=== PATIENT | female | born 1985 | race Caucasian/White ===

== ENCOUNTER 2022-03-10 05:41 | Inpatient (IN) ==
--- NOTE | 2022-03-03 13:50 | Anesthesiology Consultation ---
Date of Service March 03, 2022 Assessment & Plan (1) Encounter for pre-operative examination: Chart Review Chart Review: Acceptable Risk for Surgery and Patient NOT seen in Pre Admission Testing Consults Requested none History Surgery Operation Date: 03/10/22 09:20 Proposed Procedures p Primary Section, Twins - Krupa Irby MD Height/Weight Height: 5 ft 1 in Weight: 81.647 kg Allergies Allergy/AdvReac Type Severity Reaction Status Date / Time No Known Allergies Allergy Verified 03/03/22 12:44 Medications Home Medications Medication Instructions Recorded Confirmed Last Taken trazodone 100 mg tablet 100 mg PO HS PRN Sleep 02/13/21 03/03/22 02/07/21 21:30 ibuprofen 600 mg tablet 600 mg PO Q6H #30 tabs 02/14/21 03/03/22 Unknown aspirin 81 mg capsule 81 mg PO QAM 03/03/22 03/03/22 Unknown iron 130 mg PO BID 03/03/22 03/03/22 Unknown [id number] 1 mg 1 tab PO QAM 03/03/22 03/03/22 Unknown tablet Past Medical History Medical History Patient denies significant medical history Past Family History Family History Other Heart disease Denies family history of Ovarian cancer Breast cancer Colorectal cancer Past Surgical History Surgical History History of elbow surgery Hx of colposcopy with cervical biopsy [place] teeth extracted D and E 03/01: GA with LMA. Social History Smoking Status: Never smoker Do You Dip or Chew Tobacco: No Hx Alcohol Use: Yes ("when I'm not ") Alcohol type: beer, wine and hard liquor alcohol intake frequency: a few times a month Hx Substance Use: No substance use type: does not use
[2022-03-10] MEDS ORDERED: LACTATED RINGER'S 1,000 ML IV PRN (06:01)
[2022-03-10] MEDS ORDERED: OXYTOCIN 30 UNITS/500 ML BAG IV PRN (06:01)
[2022-03-10] MEDS ORDERED: LACTATED RINGER'S 1,000 ML IV SCH ×3 (06:15→09:00)
[2022-03-10] MEDS ORDERED: CITRIC ACID/SODIUM CITRATE 15 ML UDC PO SCH (06:30)
[2022-03-10] MEDS ORDERED: OXYTOCIN 10 UNITS/ML VIAL ONE ×2 (06:50→08:23)
[2022-03-10] MEDS ORDERED: MoRPHine SULFATE PF 1 MG/ML 10 ML AMP/VIAL ONE (06:51)
[2022-03-10] MEDS ORDERED: fentaNYL citrate 100 MCG/2 ML VIAL ONE (06:51)
[2022-03-10] MEDS ORDERED: ceFAZolin 2000MG 2,000 MG/15 ML SYR IV SCH (07:00)
[2022-03-10 07:10] LABS: Hematocrit (blood only) 36.1 % (34.1-44.9); Hemoglobin 12.5 g/dl (12.0-16.0); Mean Corpuscular Hemoglobin 30.6 pg (25.0-34.0); Mean Corpuscular Hgb Conc 34.6 g/dL (32.0-36.0); Mean Corpuscular Volume 88.5 fL (80.0-100.0); Mean Platelet Volume 11.9 fL (9.4-12.3); Platelet Count 132 K/uL (130-400); RDW Coefficient of Variation 12.5 % (11.5-14.5); RDW Standard Deviation 40.4 fL (36.4-46.3); Red Blood Count 4.08 M/uL (3.93-5.22); White Blood Count 10.41 K/ul (4.8-10.8)
--- NOTE | 2022-03-10 07:27 | History & Physical Bridge Note ---
Date of Service March 10, 2022 History & Physical Bridge Note I have examined the patient, reviewed the History & Physical and in the interval since the performance of the History & Physical I have noted the following changes of clinical significance: no changes noted Bed side US completed: both breech FHR 's confirmed She signed an informed consent. All questions were answered.
[2022-03-10 07:33] LABS: Basophils # (auto) 0.04 K/uL (0-0.2); Basophils % (auto) 0.4 %; Eosinophils # (auto) 0.18 K/uL (0-0.50); Eosinophils % (auto) 1.7 %; Immature Granulocytes # (auto) 0.11 K/uL (0.00-0.02); Immature Granulocytes % (auto) 1.1 %; Lymphocytes # (auto) 1.66 K/uL (1.2-3.4); Lymphocytes % (auto) 15.9 %; Monocytes % (auto) 7.7 %; Neutrophils # (auto) 7.62 K/uL (1.4-6.5); Neutrophils % (auto) 73.2 %
[2022-03-10] MEDS ORDERED: NALBUPHINE HCL INJ 10 MG/ML AMP IV PRN (08:03)
[2022-03-10] MEDS ORDERED: ceFAZolin 330 MG/ML 1 GM VIAL ONE (08:03)
[2022-03-10] MEDS ORDERED: MEPERIDINE HCL 25 MG/ML CARP/VIAL IV PRN (08:03)
[2022-03-10] MEDS ORDERED: NALOXONE HCL 0.08 MG in SYRINGE 1.8 ML IV PRN (08:03)
[2022-03-10] MEDS ORDERED: ePHEDrine sulfate 50 MG/ML AMP IV PRN (08:03)
[2022-03-10] MEDS ORDERED: diphenhydrAMINE 50 MG/ML VIAL IV PRN (08:03)
[2022-03-10] MEDS ORDERED: NALOXONE HCL 1 MG in SODIUM CHLORIDE 0.9% 1000ML 1,000 ML IV PRN (08:03)
[2022-03-10] MEDS ORDERED: ONDANSETRON INJ 2 MG/ML 2 ML VIAL IV PRN (08:03)
[2022-03-10] MEDS ORDERED: NALOXONE HCL 0.4 MG/1 ML VIAL/CARP IV PRN (08:03)
[2022-03-10] MEDS ORDERED: LACTATED RINGER'S 500 ML IV PRN (08:03)
[2022-03-10] MEDS ORDERED: MoRPHine SULFATE PF 1 MG/ML 10 ML AMP/VIAL INT SPINAL ONE (08:03)
[2022-03-10] MEDS ORDERED: PHENYLEPHRINE 100MCG/ML 5ML SYR ONE (08:11)
[2022-03-10] MEDS ORDERED: SODIUM CHLORIDE 0.9% 1000ML 1,000 ML IV SCH (08:15)
[2022-03-10] MEDS ORDERED: NO NARCOTICS OR SEDATIVES SCH (08:15)
[2022-03-10] MEDS ORDERED: DC INTRASPINAL MORPHINE SCH (08:15)
[2022-03-10] MEDS ORDERED: ONDANSETRON INJ 2 MG/ML 2 ML VIAL ONE (08:35)
[2022-03-10] MEDS ORDERED: HYDROCORTISONE ACETATE 25 MG SUPP PR PRN (08:54)
[2022-03-10] MEDS ORDERED: BENZOCAINE 20% AER SPR 82.5 GM CAN EXT PRN (08:54)
[2022-03-10] MEDS ORDERED: MAGNESIUM HYDROXIDE SUSP 30 ML UDC PO PRN (08:54)
[2022-03-10] MEDS ORDERED: DIPHTHERIA/TETANUS/PERTUSSIS 0.5 ML SYR/VIAL IM ONE (08:54)
[2022-03-10] MEDS ORDERED: SENNA 8.6 MG TAB PO PRN (08:54)
--- NOTE | 2022-03-10 08:56 | Post Operative Brief Note ---
Immediate Post Op Note v1 Date of Surgery March 10, 2022 Pre & Post Diagnosis Operation Date: 03/10/22 07:30 Pre-Op Diagnosis: Primary Breech Twins Post-Op Diagnosis: Primary Breech Twins I identified the patient and participated in the time-out.: Yes Procedure Operation Date: 03/10/22 07:30 <No data on this case meets the specified criteria> Primary LTCS Surgeon Krupa Irby MD [employer] Manager JEMIMA Yeager Estimated Blood Loss 500 Findings Consistent with Post-Op Diagnosis Drains Slater Catheter (intact and draining clear yellow urine prior to procedure. Anesthesia to monitor intraoperative) Anesthesia Type Spinal Complications none
--- NOTE | 2022-03-10 09:24 | Anesthesiology Progress Note ---
Date of Service March 10, 2022 Anesthesia Post Procedure Vital Signs Vital Signs: Temp Pulse Resp BP Pulse Ox 03/10/22 06:01 98.1 F 18 03/10/22 09:22 76 100 03/10/22 09:23 86 80/52 L 03/10/22 09:17 89 100 03/10/22 09:18 89 94 03/10/22 09:12 80 100 03/10/22 09:11 78 94/60 L 03/10/22 09:08 81 89 L 03/10/22 09:07 77 100 03/10/22 09:02 79 100 03/10/22 09:01 73 99/57 L 03/10/22 06:00 87 135/85 03/10/22 05:51 18 03/10/22 05:51 98.1 F 18 Transfer of Care Handoff Completed per policy Notes Mental Status: alert / awake / arousable and participated in evaluation Patient Amnestic to Procedure: Yes Nausea / Vomiting: adequately controlled Pain: adequately controlled Airway Patency, RR, SpO2: stable & adequate BP & HR: stable & adequate Hydration State: stable & adequate Neuraxial Anesthesia: was administered and sensory block is resolving Anesthetic Complications: no major complications apparent and Pt Satisfied with anesthetic care
--- NOTE | 2022-03-10 10:15 | Operative Report (OR) ---
DATE OF SURGERY: 03/10/2022. PREOPERATIVE DIAGNOSES: The patient is a 36-year-old G3, P0-0-2-0 at 38 weeks and 4 days of gestation with di-di twins, breech/breech presentation. POSTOPERATIVE DIAGNOSES: The patient is a 36-year-old G3, P0-0-2-0 at 38 weeks and 4 days of gestation with di-di twins, breech/breech presentation. PROCEDURE: Primary low transverse with Pfannenstiel skin incision. SURGEON: Krupa Irby MD CIRCULATION MAN: JEMIMA Cox. ESTIMATED BLOOD LOSS: 500 mL ANESTHESIA: Spinal. ANESTHESIOLOGIST: Dr. See. DRAINS: Slater catheter drained 50 mL of concentrated urine. COMPLICATIONS: None. FINDINGS: Maternal findings: Normal uterus, fallopian tubes, and ovaries. Baby A was a viable male infant delivered at 8:16 a.m. in complete breech presentation, Apgars were 8/9, weight was 2677 grams. Baby B was a viable female infant delivered at 8:19 a.m. in footling breech presentation, Apgars were 8/9, weight was 2764 grams. DESCRIPTION OF PROCEDURE: The patient was taken to the operating room where spinal anesthesia was given without difficulty. She was placed in dorsal supine position with a leftward tilt. She was prepared and draped in the usual sterile fashion. Pfannenstiel skin incision was made and carried through to the underlying layer of fascia with the Bovie. Fascia was incised in the midline and incision was extended laterally with the help of Juan scissors. Upper aspect of the fascial incision was then grasped with 2 Yadiel clamps, elevated and underlying rectus muscles were dissected sharply with Juan scissors and then same thing was done on the lower aspect of the fascial incision. Rectus muscles were in the midline. Peritoneum was entered bluntly with fingers and the peritoneal incision was extended superiorly and inferiorly with good visualization of the bladder. Bladder blade was inserted. Vesicouterine peritoneum was grasped with 2 Yadiel clamps and entered sharply with Metzenbaum scissors and bladder flap was created digitally and bladder blade was reinserted. Lower uterine segment was incised in transverse fashion. Incision was extended laterally with the help of fingers. Membranes were ruptured. Clear fluid was obtained. Baby A's buttocks were at the site of incision. Those were delivered without difficulty and then legs and then body and arms in flexion position and the head without difficulty. Mouth and nose were suctioned. Cord was clamped x2 and cut at 1 minute delay. Baby was vigorously moving and crying at that point. Baby A was handed off to the waiting pediatric team with Dr. Sosa. Then baby B's membranes were ruptured and the feet came first. They were delivered and then legs and then buttocks and then body and arms in flexion position and head without difficulty. Mouth and nose were suctioned. Cord was clamped x2 and cut at 1 minute delay. Baby was vigorously moving and crying at that point. She was also handed off to the waiting pediatric team and then cord blood was obtained. Placenta was delivered manually as intact and complete. Uterus was exteriorized and cleared of all clots and debris. The incision was repaired with 0 Vicryl in a running locked fashion. A second imbricating layer was placed with another 0 Vicryl in a running locked fashion. Excellent hemostasis was achieved. Cul-de-sac was irrigated with warm normal saline and suctioned.. Normal ovaries and fallopian tubes were seen. Uterus was returned to the abdomen. Pelvis was irrigated with warm normal saline and suctioned. Incision was checked to be again hemostatic. Then, parietal peritoneum was reapproximated with 3-0 Vicryl in a running fashion and the rectus muscles were also brought together with the same suture in a running fashion. Excellent hemostasis was achieved. The rectus fascia was reapproximated with 0 Vicryl in a running fashion. Subcuticular fat tissue was brought together with 3-0 Vicryl in a running fashion. The skin was closed with 4-0 Monocryl in a subcuticular fashion. The patient tolerated the procedure well. Sponge, lap, needle count was correct x3. She was given 2 grams of cefazolin before surgery. No complications happened. I was present during whole procedure. She was taken to recovery room in stable condition. Job ID: [id number] [facility]
[2022-03-10] MEDS: OXYTOCIN 20 UNITS in LACTATED RINGER'S 1,000 ML IV SCH ×2 (11:27→19:44)
[2022-03-10] MEDS: KETOROLAC 30 MG/ML VIAL IV PRN (11:57)
[2022-03-10] MEDS: SIMETHICONE 80 MG CHEW PO SCH ×3 (13:25→20:41)
[2022-03-10] MEDS ORDERED: PROMETHAZINE HCL 6.25 MG in SODIUM CHLORIDE 0.9% 50 ML IV STA (13:58)
[2022-03-10] MEDS: DOCUSATE SODIUM 100 MG CAP PO SCH (20:41)
[2022-03-11] MEDS: KETOROLAC 30 MG/ML VIAL IV PRN (01:33)
[2022-03-11] MEDS ORDERED: ONDANSETRON INJ 2 MG/ML 2 ML VIAL IV PRN (02:05)
[2022-03-11] MEDS ORDERED: diphenhydrAMINE Capsule 25 MG CAP PO PRN (02:05)
[2022-03-11] MEDS ORDERED: PROMETHAZINE HCL 25 MG in SODIUM CHLORIDE 0.9% 50 ML IV PRN (02:05)
[2022-03-11] MEDS ORDERED: MEPERIDINE HCL 50 MG/ML CARP IV PRN (02:05)
[2022-03-11] MEDS ORDERED: diphenhydrAMINE 50 MG/ML VIAL IV PRN (02:05)
[2022-03-11 05:56] LABS: Basophils # (auto) 0.05 K/uL (0-0.2); Basophils % (auto) 0.3 %; Eosinophils # (auto) 0.14 K/uL (0-0.50); Eosinophils % (auto) 0.9 %; Hematocrit (blood only) 32.2 % (34.1-44.9); Hemoglobin 11.1 g/dl (12.0-16.0); Immature Granulocytes # (auto) 0.15 K/uL (0.00-0.02); Lymphocytes # (auto) 1.25 K/uL (1.2-3.4); Lymphocytes % (auto) 8.2 %; Mean Corpuscular Hemoglobin 30.2 pg (25.0-34.0); Mean Corpuscular Hgb Conc 34.5 g/dL (32.0-36.0); Mean Corpuscular Volume 87.5 fL (80.0-100.0); Mean Platelet Volume 11.4 fL (9.4-12.3); Monocytes # (auto) 1.32 K/uL (0.24-0.82); Monocytes % (auto) 8.6 %; Neutrophils # (auto) 12.38 K/uL (1.4-6.5); Platelet Count 118 K/uL (130-400); RDW Coefficient of Variation 12.4 % (11.5-14.5); RDW Standard Deviation 39.8 fL (36.4-46.3); Red Blood Count 3.68 M/uL (3.93-5.22); White Blood Count 15.29 K/ul (4.8-10.8)
[2022-03-11] MEDS: IBUPROFEN 600 MG TAB PO PRN ×3 (07:54→17:43)
[2022-03-11] MEDS: PRENATAL VITAMIN 1 TAB PO SCH (07:54)
[2022-03-11] MEDS: FERROUS SULFATE 325 MG TAB PO SCH (07:54)
[2022-03-11] MEDS: DOCUSATE SODIUM 100 MG CAP PO SCH ×2 (07:54→21:01)
[2022-03-11] MEDS: oxyCODONE/ACETAMINOPHEN 5mg/325mg TAB PO PRN ×3 (07:55→17:43)
[2022-03-11] MEDS: SIMETHICONE 80 MG CHEW PO SCH ×4 (08:07→21:01)
--- NOTE | 2022-03-11 08:54 | Obstetrical Progress Note ---
Date of Service March 11, 2022 Assessment & Plan Admission and Anticipated Discharge Date Admission Date: March 10, 2022 Subjective Patient is seen and examined. She feels well, no complaints. Pain is under control with oral meds. Ambulating without dizziness Voiding without difficulty Tolerating regular diet with out N&V Flatus + BM neg Bleeding is minimal No fever/ chills/ CP/ SOB/ N&V/ Leg pain Breast and bottle feeding twins without problems Vital Signs Temp Pulse Pulse Resp BP Pulse Ox O2 Del Method 03/11/22 07:20 36.9 C 84 18 127/85 100 Room Air 03/11/22 07:24 37.1 C 86 18 123/85 99 Room Air 03/11/22 03:25 36.9 C 76 18 115/69 98 Room Air 03/11/22 01:25 18 98 03/11/22 00:20 18 97 03/10/22 23:25 36.9 C 83 18 122/76 96 Room Air 03/10/22 23:05 18 96 03/10/22 22:00 18 97 03/10/22 21:00 18 98 Lab Results 03/10/22 03/10/22 03/10/22 Range/Units 05:30 06:01 06:52 WBC 10.41 (4.8-10.8) K/ul RBC 4.08 (3.93-5.22) M/uL Hgb 12.5 (12.0-16.0) g/dl Hct 36.1 (34.1-44.9) % MCV 88.5 (80.0-100.0) fL MCH 30.6 (25.0-34.0) pg MCHC 34.6 (32.0-36.0) g/dL RDW Std Deviation 40.4 (36.4-46.3) fL RDW Coeff of Alpa 12.5 (11.5-14.5) % Plt Count 132 (130-400) K/uL MPV 11.9 (9.4-12.3) fL Immature Gran % (Auto) 1.1 % Neut % (Auto) 73.2 % Lymph % (Auto) 15.9 % [place]ock[place] % (Auto) 7.7 % Eos % (Auto) 1.7 % Baso % (Auto) 0.4 % Neut # (Auto) 7.62 H (1.4-6.5) K/uL Lymph # (Auto) 1.66 (1.2-3.4) K/uL [place] # (Auto) 0.80 (0.24-0.82) K/uL Eos # (Auto) 0.18 (0-0.50) K/uL Baso # (Auto) 0.04 (0-0.2) K/uL Immature Gran # (Auto) 0.11 H (0.00-0.02) K/uL SARS-CoV-2, RNA, NAAT NEGATIVE (NEGATIVE) Blood Type O Positive Antibody Screen NEGATIVE 03/11/22 Range/Units 05:46 WBC 15.29 H (4.8-10.8) K/ul RBC 3.68 L (3.93-5.22) M/uL Hgb 11.1 L (12.0-16.0) g/dl Hct 32.2 L (34.1-44.9) % MCV 87.5 (80.0-100.0) fL MCH 30.2 (25.0-34.0) pg MCHC 34.5 (32.0-36.0) g/dL RDW Std Deviation 39.8 (36.4-46.3) fL RDW Coeff of Alpa 12.4 (11.5-14.5) % Plt Count 118 L (130-400) K/uL MPV 11.4 (9.4-12.3) fL Immature Gran % (Auto) 1.0 % Neut % (Auto) 81.0 % Lymph % (Auto) 8.2 % [place] % (Auto) 8.6 % Eos % (Auto) 0.9 % Baso % (Auto) 0.3 % Neut # (Auto) 12.38 H (1.4-6.5) K/uL Lymph # (Auto) 1.25 (1.2-3.4) K/uL [place] # (Auto) 1.32 H (0.24-0.82) K/uL Eos # (Auto) 0.14 (0-0.50) K/uL Baso # (Auto) 0.05 (0-0.2) K/uL Immature Gran # (Auto) 0.15 H (0.00-0.02) K/uL SARS-CoV-2, RNA, NAAT (NEGATIVE) Blood Type Antibody Screen PE: General: Alert, orientedx3, NAD CVS: S1S2 RRR Lungs; CTAB Abd: soft, NT, ND, BS+, fundus firm, below Umbilicus Incision/ Dressing: Clean, dry, intact Perineum intact, Lochia rubra minimal Ext; NT, no edema AP: 36 yo s/p C Section, pod# 1 VSS Afebrile doing well Continue routine postop care Encourage ambulation, PO intake All questions were answered Results & Data ([facility]) Vital Signs (Past 12 Hours) Vital Signs Temp Pulse Pulse Resp BP Pulse Ox O2 Del Method 03/11/22 07:20 36.9 C 84 18 127/85 100 Room Air 03/11/22 07:24 37.1 C 86 18 123/85 99 Room Air 03/11/22 03:25 36.9 C 76 18 115/69 98 Room Air 03/11/22 01:25 18 98 03/11/22 00:20 18 97 03/10/22 23:25 36.9 C 83 18 122/76 96 Room Air 03/10/22 23:05 18 96 03/10/22 22:00 18 97 03/10/22 21:00 18 98
[2022-03-11] MEDS ORDERED: bisacodyL 5 MG TABEC PO SCH (20:00)
[2022-03-12] MEDS: IBUPROFEN 600 MG TAB PO PRN ×4 (00:04→13:16)
[2022-03-12] MEDS: oxyCODONE/ACETAMINOPHEN 5mg/325mg TAB PO PRN ×4 (00:04→13:16)
[2022-03-12 06:13] LABS: Basophils # (auto) 0.05 K/uL (0-0.2); Basophils % (auto) 0.5 %; Eosinophils # (auto) 0.16 K/uL (0-0.50); Eosinophils % (auto) 1.6 %; Hematocrit (blood only) 29.9 % (34.1-44.9); Hemoglobin 10.2 g/dl (12.0-16.0); Immature Granulocytes # (auto) 0.11 K/uL (0.00-0.02); Immature Granulocytes % (auto) 1.1 %; Lymphocytes % (auto) 14.3 %; Mean Corpuscular Hgb Conc 34.1 g/dL (32.0-36.0); Mean Corpuscular Volume 87.9 fL (80.0-100.0); Mean Platelet Volume 11.3 fL (9.4-12.3); Monocytes # (auto) 1.01 K/uL (0.24-0.82); Monocytes % (auto) 10.3 %; Neutrophils # (auto) 7.08 K/uL (1.4-6.5); Neutrophils % (auto) 72.2 %; Platelet Count 155 K/uL (130-400); RDW Coefficient of Variation 12.7 % (11.5-14.5); RDW Standard Deviation 41.5 fL (36.4-46.3); White Blood Count 9.81 K/ul (4.8-10.8)
[2022-03-12] MEDS ORDERED: bisacodyL 10 MG SUPP PR PRN (08:54)
[2022-03-12] MEDS: SIMETHICONE 80 MG CHEW PO SCH ×2 (09:36→13:16)
[2022-03-12] MEDS: FERROUS SULFATE 325 MG TAB PO SCH (09:36)
[2022-03-12] MEDS: DOCUSATE SODIUM 100 MG CAP PO SCH (09:37)
[2022-03-12] MEDS: PRENATAL VITAMIN 1 TAB PO SCH (09:37)
--- NOTE | 2022-03-12 11:03 | Obstetrical Progress Note ---
Date of Service March 12, 2022 Subjective Ambulation: ambulating normally Voiding: no voiding problems Passing Gas:: Yes Diet Tolerance:: regular diet Feeding Type:: breast feeding Current Pain Level(1-10): 0 doing well. plans to go home today Physical Exam Constitutional WD/WN, vitals as above Gastrointestinal (Abdomen) Inspection/Auscultation: abdomen normal to inspection incision c/d/i. Abdomen soft and non-tender. fundus firm below U Musculoskeletal Extremities: extremities normal to inspection Skin no rashes, warm and dry Neurologic patellar DTR's 2+ bilat, sensation intact Psychiatric A+Ox3, euthymic affect Results & Data ([facility]) Vital Signs (Past 12 Hours) Vital Signs Temp Pulse Pulse Pulse Resp BP Pulse Ox 03/12/22 10:06 83 132/85 03/12/22 08:10 36.6 C 73 18 150/91 H 99 03/12/22 00:15 03/12/22 00:15 36.7 C 81 18 127/81 98 O2 Del Method 03/12/22 10:06 03/12/22 08:10 Room Air 03/12/22 00:15 Room Air 03/12/22 00:15 Room Air Laboratory Results Laboratory Results - last 72 hr 03/10/22 03/10/22 03/10/22 05:30 06:01 06:52 WBC 10.41 RBC 4.08 Hgb 12.5 Hct 36.1 MCV 88.5 MCH 30.6 MCHC 34.6 RDW Std Deviation 40.4 RDW Coeff of Alpa 12.5 Plt Count 132 MPV 11.9 Immature Gran % (Auto) 1.1 Neut % (Auto) 73.2 Lymph % (Auto) 15.9 Levy % (Auto) 7.7 Eos % (Auto) 1.7 Baso % (Auto) 0.4 Neut # (Auto) 7.62 H Lymph # (Auto) 1.66 Levy # (Auto) 0.80 Eos # (Auto) 0.18 Baso # (Auto) 0.04 Immature Gran # (Auto) 0.11 H SARS-CoV-2, RNA, NAAT NEGATIVE Blood Type O Positive Antibody Screen NEGATIVE 03/11/22 03/12/22 05:46 05:51 WBC 15.29 H 9.81 RBC 3.68 L 3.40 L Hgb 11.1 L 10.2 L Hct 32.2 L 29.9 L MCV 87.5 87.9 MCH 30.2 30.0 MCHC 34.5 34.1 RDW Std Deviation 39.8 41.5 RDW Coeff of Alpa 12.4 12.7 Plt Count 118 L 155 MPV 11.4 11.3 Immature Gran % (Auto) 1.0 1.1 Neut % (Auto) 81.0 72.2 Lymph % (Auto) 8.2 14.3 Levy % (Auto) 8.6 10.3 Eos % (Auto) 0.9 1.6 Baso % (Auto) 0.3 0.5 Neut # (Auto) 12.38 H 7.08 H Lymph # (Auto) 1.25 1.40 Levy # (Auto) 1.32 H 1.01 H Eos # (Auto) 0.14 0.16 Baso # (Auto) 0.05 0.05 Immature Gran # (Auto) 0.15 H 0.11 H SARS-CoV-2, RNA, NAAT Blood Type Antibody Screen
--- NOTE | 2022-03-18 02:46 | Discharge Summary (DS) ---
DATE OF ADMISSION: 03/10/2022. DATE OF DISCHARGE: 03/12/2022. DETAILS OF ADMISSION: The patient is a 36-year-old G3, P0-0-2-0 at 38 weeks and 4 days of gestation with di-di twins, both were breech-breech presentation. She was scheduled for primary for above indication. She presented to labor and delivery for a scheduled procedure. She had no symptom s of labor and vital signs were stable and heart rates were reassuring. She was taken to the o perating room for the above surgery. She delivered two viable infants, baby A at 7:16 a.m. in comple te breech presentation and baby B was delivered at 8:19 a.m. with footling breech presentation. Both Apgars were 8/9 and her surgery was uncomplicated. See dictated op note for details. On postop period, the patient was doing well, vital signs stable, afebrile. Urine output was adequat e. On postoperative day #1, the patient was doing well, vital signs stable, afebrile. Slater was dis continued. She ambulated, voided without difficulty, tolerated regular diet, passed gas. Vital sign s stable, afebrile. She was breast and bottle feeding. Her H and H was 11/32.2. Her incision was c lean, dry and intact. Extremities were nontender, no edema. On postoperative day #2, the patient wa s doing well, vital signs stable, afebrile. She was passing gas, tolerating regular diet, breast and bottle feeding. Physical exam was unremarkable. Incision was clean, dry and intact. Abdomen was s oft, nontender, nondistended. Her repeat H and H was 10.2/29.9. She decided to go home on postopera tive day #2. Discharge instructions were given. Prescriptions were written for pain. She is to be seen in the office in a week for incision check. All questions were answered. Job ID: [id number]
== END 2022-03-12 15:39 | disposition home or self-care (01) | DRG 788 ==
LOC: 4S1 05:41 → EDSTATUS 09:20 → 4E2 12:18